=== PATIENT | female | born 2000 | race Two or more races ===

== ENCOUNTER 2024-10-03 09:29 | Outpatient (CLI) | payer MEDICAID ==
[2024-10-03 10:11] LABS: Hematocrit 43.0 % (36.0-46.0); Hemoglobin 14.3 g/dL (12.2-16.2); Mean Corpuscular Hemoglobin 27.3 pg (28.0-32.0); Mean Corpuscular Volume 82.0 fL (80.0-100.0); Nucleated Red Blood Cells % 0.0 %
[2024-10-03 10:38] LABS: Alanine Aminotransferase 13 U/L (7-40); Alkaline Phosphatase 78 U/L (46-116); Anion Gap 10 (5-15); BUN/Creatinine Ratio 13.9 (10.0-20.0); Blood Urea Nitrogen 10 mg/dL (9-23); Calcium 10.2 mg/dL (8.7-10.4); Carbon Dioxide 25 mmol/L (20-31); Chloride 104 mmol/L (98-107); Cholesterol 180 mg/dL (< 200); Glucose 90 mg/dL (74-106); HDL Cholesterol 57 mg/dL (40-59); Potassium 4.2 mmol/L (3.5-5.1); Sodium 139 mmol/L (136-145); Total Protein 7.6 g/dL (5.7-8.2); Triglycerides 50 mg/dL (< 150)
[2024-10-03 10:39] LABS: Bilirubin, Total 0.6 mg/dL (0.2-1.0)
[2024-10-03 11:09] LABS: Albumin 5.1 g/dL (3.2-4.8)
== END 2024-10-03 17:00 | disposition home or self-care (01) ==
LOC: LAB 09:29
PROVIDERS: ATTEND Internal Medicine
DX: Z00.00 Encounter for general adult medical examination without abnormal findings (principal)
CPT/HCPCS: 36415; 80053; 80061; 82785; 83036; 84443; 85025; 86003

== ENCOUNTER 2024-11-26 09:18 | Outpatient (CLI) | payer MEDICAID ==
[2024-11-26 11:41] LABS: Free T3 3.04 pg/mL (2.3-4.2); Free T4 (Free Thyroxine) 0.95 ng/dL (0.89-1.76)
== END 2024-11-26 17:00 | disposition home or self-care (01) ==
LOC: LAB 09:18
PROVIDERS: ATTEND Internal Medicine
DX: E03.9 Hypothyroidism, unspecified (principal)
CPT/HCPCS: 36415; 84439; 84443; 84480; 84481; 86376